=== PATIENT | male | born 1975 | race African-American/Black ===

== ENCOUNTER 2016-10-23 09:58 | Emergency (ER) | payer SELFPAY | END 2016-10-23 10:32 | disposition home or self-care (01) | LOC: NAV ERS 09:58 | DX: H20.9 Unspecified iridocyclitis (principal) | CPT/HCPCS: 99283 ==

== ENCOUNTER 2019-11-29 17:20 | Emergency (ER) | payer OTHER, SELFPAY ==
[2019-11-29] MEDS ORDERED: Lidocaine 1% (PF) 30 ML VIAL ONE (17:24)
[2019-11-29] MEDS ORDERED: Adacel (T-DAP) 0.5 ML SYRINGE ONE (17:25)
--- NOTE | 2019-11-29 18:19 | RAD ---
RIGHT FOREARM TWO VIEWS: History: Injury, right forearm pain. FINDINGS: No acute fracture is seen. No radiopaque foreign body is seen. There is a soft tissue laceration in t he distal forearm. A well corticated bony density is seen distal to the ulna, likely old remote injur y. IMPRESSION: As above. POS: [facility]ANCE
== END 2019-11-29 19:29 | disposition home or self-care (01) ==
LOC: NAV ERS 17:20
DX: S51.811A Laceration without foreign body of right forearm, initial encounter (principal); W25.XXXA Contact with sharp glass, initial encounter
CPT/HCPCS: 12002; 90715; J2001

== ENCOUNTER 2019-12-15 20:24 | Emergency (ER) | payer OTHER | END 2019-12-15 21:01 | disposition home or self-care (01) | LOC: NAV ERS 20:24 | DX: Z48.02 Encounter for removal of sutures (principal) ==